=== PATIENT | male | born 1965 | race Caucasian/White ===

== ENCOUNTER 2020-12-07 07:43 | Emergency (ER) | payer SELFPAY ==
[~2020-12-07] VITALS: Ht 185.4 cm; Wt 90.7 kg
[2020-12-07 07:43] VITALS: BP 148/99
[2020-12-07] MEDS ORDERED: cefTRIAXone 1GM/50ML D5W 50 ML IV ONE (12:30)
[2020-12-07] MEDS ORDERED: metroNIDAZOLE 500MG/100ML 100 ML IV ONE (12:30)
== END 2020-12-07 14:10 | disposition left against medical advice (07) ==
LOC: ER 07:43 → EDBD 07:43 → ER 14:10
DX: R10.12 Left upper quadrant pain (principal); K20.90 Esophagitis, unspecified without bleeding; F17.210 Nicotine dependence, cigarettes, uncomplicated; Z88.0 Allergy status to penicillin
CPT/HCPCS: 74176; 93005